=== PATIENT | female | born 1970 | race Caucasian/White ===

== ENCOUNTER 2016-11-11 00:55 | Observation (INO) | payer MEDICARE, OTHER ==
[2016-11-11] VITALS (9 sets, daily range): BP systolic 114–178; BP diastolic 57–87; PULSE 69–110; RESP 15–20; TEMP 97.8–98.4; O2SAT 94–97
[~2016-11-11] VITALS: Ht 172.7 cm; Wt 140.0 kg
[~2016-11-11 00:55] MED LIST: AMIT75TA6 PO; DEPA500T3 PO; ENAL5TAB PO; LEVEMIR; LORTA5 PO; NOVOLOGP2 SQ; PERI8.6T PO
[2016-11-11 01:40] LABS: AUTOMATED NEUTROPHIL # 6.3 TH/MM3 (1.8-7.7); BASOPHIL # 0.1 TH/MM3 (0-0.2); BASOPHIL % 0.7 % (0.0-2.0); EOSINOPHIL # 0.3 TH/MM3 (0-0.4); EOSINOPHIL % 2.8 % (0.0-4.0); HEMATOCRIT 44.9 % (35.0-46.0); HEMO FLAGS DIFF FINAL; LYMPH % 33.5 % (9.0-44.0); LYMPHOCYTE # 3.8 TH/MM3 (1.0-4.8); MEAN CELL VOLUME 90.3 FL (80.0-100.0); MEAN CORPUSCULAR HEMOGLOBIN 30.3 PG (27.0-34.0); MEAN CORPUSCULAR HGB CONC 33.6 % (32.0-36.0); MONO % 7.4 % (0.0-8.0); NEUT % 55.6 % (16.0-70.0); PLATELET COUNT 349 TH/MM3 (150-450); RED BLOOD COUNT 4.98 MIL/MM3 (4.00-5.30); RED CELL DISTRIBUTION WIDTH 13.2 % (11.6-17.2); WHITE BLOOD COUNT 11.2 TH/MM3 (4.0-11.0)
--- NOTE | 2016-11-11 01:54 | RADRPT ---
EXAM DATE/TIME: 11/11/2016 01:26 [facility] COMPARISON: No previous studies available for comparison. INDICATIONS : Chest pain. MEDICAL HISTORY : Diabetes mellitus type II. SURGICAL HISTORY : None. ENCOUNTER: Initial ACUITY: 1 day PAIN SCORE: 6/10 LOCATION: Bilateral chest FINDINGS: A single view of the chest demonstrates the lungs to be symmetrically aerated without evidence of mas s, infiltrate or effusion. The cardiomediastinal contours are unremarkable. Osseous structures are intact. CONCLUSION: No acute disease. John Patel MD on November 11, 2016 at 1:52 Board Certified Radiologist. This report was verified electronically.
[2016-11-11 02:15] LABS: ANION GAP 8 MEQ/L (5-15); BICARBONATE 25.4 MEQ/L (21.0-32.0); BLOOD UREA NITROGEN 10 MG/DL (7-18); CHLORIDE 108 MEQ/L (98-107); GLOMERULAR FILTRATION RATE 102 ML/MIN (>89); POTASSIUM 3.7 MEQ/L (3.5-5.1); SODIUM (NA) 141 MEQ/L (136-145)
[2016-11-11 02:16] LABS: CREATINE KINASE 74 U/L (26-192)
[2016-11-11] MEDS ORDERED: NITROGLYCERIN 0.4 MG SL 25 TABS/BTL SL ONE (03:00)
[2016-11-11] MEDS ORDERED: ASPIRIN 81 MG CHEW TAB CHEW ONE (03:00)
[2016-11-11] MEDS ORDERED: ONDANSETRON HCL 4 MG/2 ML VIAL IV PUSH ONE (03:00)
[2016-11-11] MEDS ORDERED: DEPA500T3 PO (03:14)
[2016-11-11] MEDS ORDERED: CANA300T PO (03:14)
[2016-11-11] MEDS ORDERED: DIVA250ER PO (03:14)
[2016-11-11] MEDS ORDERED: NOVOLOGP2 SQ (03:14)
[2016-11-11] MEDS ORDERED: DILT30TA PO (03:14)
[2016-11-11] MEDS ORDERED: MONT10TA2 PO (03:14)
[2016-11-11] MEDS ORDERED: PROM12.54 PO (03:14)
[2016-11-11] MEDS ORDERED: AMIT150T PO (03:14)
[2016-11-11] MEDS ORDERED: NEUR600T PO (03:14)
[2016-11-11] MEDS ORDERED: LEVEMIR SQ (03:14)
[2016-11-11 03:36] LABS: APTT (PATIENT) 24.7 SEC (24.3-30.1); INTERNATIONAL NORMALIZED RATIO 0.9 RATIO
--- NOTE | 2016-11-11 04:28 | PD ---
HPI Chief Complaint: Chest Pain Time Seen by Provider: 02:40 Travel History International Travel<30 days: No Contact w/Intl Traveler<30days: No Traveled to known affect area: No History of Present Illness HPI Patient is a 46-year-old female presents emergency department for evaluation of chest pain which woke her from a sound sleep tonight. Patient states is associated with some mild nausea and one episode of vomiting as well as some mild shortness of breath. Patient states the pain also radiates down her left leg and she thinks that she has some minimal swelling over left leg. Patient states she has a history of a procedure and a vein to her lower extremity which was years ago. Patient also states that she had a stress test over 10 years ago. Has her father who had her first heart attack at the age of 45, she does have a history of high blood pressure was not taking medicine for her. Nonsmoker, no cholesterol problems. States the pain is very squeezing left- sided chest. PFSH Past Medical History Autoimmune Disease: No Cancer: No Cardiovascular Problems: Yes (HTN) Diabetes: Yes Patient Takes Glucophage: No Diminished Hearing: No Endocrine: Yes Genitourinary: No Hypertension: Yes Immune Disorder: No Musculoskeletal: No Neurologic: Yes (BRAIN ANEURYSM) Psychiatric: No Reproductive: No Respiratory: Yes (ASTHMA) Migraines: Yes ?: Not Menopausal: No : 6 Para: 3 Past Surgical History Abdominal Surgery: Yes (gb) Cholecystectomy: Yes Tonsillectomy: Yes Other Surgery: Yes (vascular surgery blle ) Social History Alcohol Use: Yes (RARE) Tobacco Use: No Substance Use: Yes (WEED) Allergies-Medications (Allergen,Severity, Reaction): Coded Allergies: Amoxicillin (Verified Allergy, Severe, 11/11/16) Biaxin (Verified Allergy, Severe, 11/11/16) Codeine (Verified Allergy, Severe, 11/11/16) Erythromycin (Verified Allergy, Severe, 11/11/16) Latex (Verified Allergy, Severe, 11/11/16) Metformin (Verified Allergy, Severe, 11/11/16) Penicillin (Verified Allergy, Severe, 11/11/16) Percocet (Verified Allergy, Severe, 11/11/16) Tylox (Verified Allergy, Severe, 11/11/16) Gadolinium Derivatives (Verified Allergy, Intermediate, EDEMA, 11/11/16) Xanax (Verified Allergy, Mild, HIVES, 11/11/16) Reported Meds & Prescriptions Reported Meds & Active Scripts Active Reported Amitriptyline (Amitriptyline HCl) 150 Mg Tab 150 Mg PO HS Diltiazem (Diltiazem HCl) 30 Mg Tab 30 Mg PO DAILY Invokana (Canagliflozin) 300 Mg Tab 300 Mg PO DAILY Take before 1st meal of day. Promethazine (Promethazine HCl) 12.5 Mg Tab 12.5 Mg PO Q6H PRN Novolog Inj (Insulin Aspart) 1,000 Unit/10 Ml Vial 0 SQ TID Sliding Scale as directed. Levemir Inj (Insulin Detemir) 1,000 unit/ 10 ML Vial 55 Units SQ BID Do not mix with any other Insulin. Neurontin (Gabapentin) 600 Mg Tab 600 Mg PO TID Depakote ER (Divalproex Sodium) 250 Mg Geri 250 Mg PO HS Depakote ER (Divalproex Sodium) 500 Mg Geri 500 Mg PO DAILY NEB Singulair (Montelukast Sodium) 10 Mg Tab Unknown Dose PO DAILY Review of Systems Except as stated in HPI: all other systems reviewed are Neg Physical Exam Narrative GENERAL: Well-developed well-nourished, morbidly obese in no apparent distress. SKIN: Focused skin assessment warm/dry. HEAD: Atraumatic. Normocephalic. EYES: Pupils equal and round. No scleral icterus. No injection or drainage. ENT: No nasal bleeding or discharge. Mucous membranes pink and moist. NECK: Trachea midline. No JVD. CARDIOVASCULAR: Regular rate and rhythm. No murmur appreciated. 2+ but equal pulses in all 4 extremity's. RESPIRATORY: No accessory muscle use. Clear to auscultation. Breath sounds equal bilaterally. GASTROINTESTINAL: Abdomen soft, non-tender, nondistended. Hepatic and splenic margins not palpable. MUSCULOSKELETAL: No obvious deformities. No clubbing. No cyanosis. No edema. I appreciate no swelling of either lower extremity. Homans sign is negative. NEUROLOGICAL: Awake and alert. No obvious cranial nerve deficits. Motor grossly within normal limits. Normal speech. PSYCHIATRIC: Appropriate mood and affect; insight and judgment normal. Data Data Last Documented VS Vital Signs Date Time Temp Pulse Resp B/P Pulse Ox O2 Delivery O2 Flow Rate FiO2 11/11/16 03:05 110 20 143/68 97 Room Air 11/11/16 00:56 98.4 Orders Electrocardiogram (11/11/16 01:02) Complete Blood Count With Diff (11/11/16 01:02) Basic Metabolic Panel (Bmp) (11/11/16 01:02) Ckmb (Isoenzyme) Profile (11/11/16 01:02) Troponin I (11/11/16 01:02) Chest, Single Ap (11/11/16 01:02) Iv Access Insert/Monitor (11/11/16 01:02) Ecg Monitoring (11/11/16 01:02) Oxygen Administration (11/11/16 01:02) Oximetry (11/11/16 01:02) Act Partial Throm Time (Ptt) (11/11/16 02:33) Prothrombin Time / Inr (Pt) (11/11/16 02:33) D-Dimer (11/11/16 02:33) Ondansetron Inj (Zofran Inj) (11/11/16 03:00) Nitroglycerin Sl (Nitrostat Sl) (11/11/16 03:00) Aspirin Chew (Aspirin Chew) (11/11/16 03:00) Troponin I (11/11/16 04:12) Electrocardiogram (11/11/16 ) Labs Laboratory Tests Test 11/11/16 11/11/16 01:25 02:57 White Blood Count 11.2 TH/MM3 Red Blood Count 4.98 MIL/MM3 Hemoglobin 15.1 GM/DL Hematocrit 44.9 % Mean Corpuscular Volume 90.3 FL Mean Corpuscular Hemoglobin 30.3 PG Mean Corpuscular Hemoglobin 33.6 % Concent Red Cell Distribution Width 13.2 % Platelet Count 349 TH/MM3 Mean Platelet Volume 8.0 FL Neutrophils (%) (Auto) 55.6 % Lymphocytes (%) (Auto) 33.5 % Monocytes (%) (Auto) 7.4 % Eosinophils (%) (Auto) 2.8 % Basophils (%) (Auto) 0.7 % Neutrophils # (Auto) 6.3 TH/MM3 Lymphocytes # (Auto) 3.8 TH/MM3 Monocytes # (Auto) 0.8 TH/MM3 Eosinophils # (Auto) 0.3 TH/MM3 Basophils # (Auto) 0.1 TH/MM3 CBC Comment DIFF FINAL Differential Comment Sodium Level 141 MEQ/L Potassium Level 3.7 MEQ/L Chloride Level 108 MEQ/L Carbon Dioxide Level 25.4 MEQ/L Anion Gap 8 MEQ/L Blood Urea Nitrogen 10 MG/DL Creatinine 0.63 MG/DL Estimat Glomerular Filtration 102 ML/MIN Rate Random Glucose 98 MG/DL Calcium Level 8.4 MG/DL Total Creatine Kinase 74 U/L Troponin I LESS THAN 0.02 NG/ML Prothrombin Time 10.0 SEC Prothromb Time International 0.9 RATIO Ratio Activated Partial 24.7 SEC Thromboplast Time D-Dimer Quantitative (PE/DVT) 0.33 MG/L [place] [place] Medical Decision Making Medical Screen Exam Complete: Yes Emergency Medical Condition: Yes Interpretation(s) EKG shows normal sinus rhythm normal axis normal R-wave progression. No concerning ST segment changes. Possible left atrial enlargement. This is a borderline EKG. Differential Diagnosis Chest pain, ACS, AMI, PE seems unlikely, DVT seems unlikely. Narrative Course Patient was roomed emergency department, given nitroglycerin and aspirin, nitroglycerin relieved her pain minimally. Patient does have risk factors as above. Initial EKG and troponin negative, have added on a d-dimer which is negative. Discussed with the patient chest pain workup and recommended observation status and she is agreeable this time. Stable for the chest pain center. Diagnosis Primary Impression: Chest pain Qualified Code: R07.9 - Chest pain, unspecified type Admitting Information Admitting Physician Requests: Observation Condition: Stable Donnie Patterson MD Nov 11, 2016 04:28
[2016-11-11] MEDS ORDERED: NITROGLYCERIN 0.4 MG SL 25 TABS/BTL SL PRN (08:00)
[2016-11-11] MEDS ORDERED: GLUCAGON 1 MG/ML VIAL OTHER PRN (08:00)
[2016-11-11] MEDS ORDERED: DEXTROSE 50% IN WATER 50 ML VIAL(D50) IV PRN (08:00)
[2016-11-11] MEDS ORDERED: ONDANSETRON HCL 4 MG/2 ML VIAL IV PRN (08:00)
[2016-11-11 08:39] LABS: CREATINE KINASE 42 U/L (26-192)
[2016-11-11] MEDS ORDERED: ASPIRIN 325 MG TAB PO SCH (09:00)
[2016-11-11] MEDS ORDERED: SODIUM CHLORIDE 0.9% FLUSH 10 ML FLUSH IV FLUSH SCH (09:00)
--- NOTE | 2016-11-11 10:07 | HHI.HP ---
HPI Primary Care Physician David Lopez DO Chief Complaint Chest pain History of Present Illness 46-year-old patient with history of hypertension, diabetes type 2, and morbidly obese presents for evaluation of chest pain. Onset last evening at 11 PM. Pain woke her from sleep. Location left anterior chest. Characterized as shooting pain and squeezing. Duration constant, severe pain lasts approximately 1 hour currently pain level is 6/10. Associated symptoms included shortness of breath , nausea, vomiting, and lightheadedness. Denied any diaphoresis. Also states she has a current migraine. No known precipitating or relieving factors. Review of Systems General: No fatigue,weakness, fever, chills, recent illness, recent travel, or change in appetite HEENT: Current migraine. Endorses frequent migraine takes amitriptyline and Depakote. Reports 3 cerebral aneurysms that are all stable. Follows with Dr. Lazo. No vision changes, no nasal congestion or drainage, no dysphasia CV: As stated above. No palpitations or dizziness. RESP: No SOB, cough, wheeze, recent URI. Reports history of asthma. GI: No current nausea or vomiting. No bowel changes, diarrhea, constipation, pain, distention, melena, or blood in the stool. No unintentional weight gain or weight loss : No dysuria, urgency, frequency, or history of kidney stones or frequent UTI EXT: Bilateral lower leg neuropathy. Occasional dependent edema that is relieved with elevation. MS: As stated above. Pain is reproduced upon palpation. Same pain that brought her to the emergency room. No change in ROM NEURO: No difficulty with balance, LOC, motor/sensory deficits PSYCH: No anxiety, depression, suicidal ideation, or situational stress. Endorses she has a "social phobia does not like to go in public" SKIN: No rashes, no concerning lesions Past Family Social History Allergies: Coded Allergies: Amoxicillin (Verified Allergy, Severe, 11/11/16) Biaxin (Verified Allergy, Severe, 11/11/16) Codeine (Verified Allergy, Severe, 11/11/16) Erythromycin (Verified Allergy, Severe, 11/11/16) Latex (Verified Allergy, Severe, 11/11/16) Metformin (Verified Allergy, Severe, 11/11/16) Penicillin (Verified Allergy, Severe, 11/11/16) Percocet (Verified Allergy, Severe, 11/11/16) Tylox (Verified Allergy, Severe, 11/11/16) Gadolinium Derivatives (Verified Allergy, Intermediate, EDEMA, 11/11/16) Xanax (Verified Allergy, Mild, HIVES, 11/11/16) Past Medical History Hypertension, diabetes type 2 insulin-dependent, morbidly obese, cerebral aneurysms 3 (reports 1 right side, 2 left side) Past Surgical History Cholecystectomy, tonsillectomy Reported Medications Active Reported Amitriptyline (Amitriptyline HCl) 150 Mg Tab 150 Mg PO HS Diltiazem (Diltiazem HCl) 30 Mg Tab 30 Mg PO DAILY Invokana (Canagliflozin) 300 Mg Tab 300 Mg PO DAILY Take before 1st meal of day. Promethazine (Promethazine HCl) 12.5 Mg Tab 12.5 Mg PO Q6H PRN Novolog Inj (Insulin Aspart) 1,000 Unit/10 Ml Vial 0 SQ TID Sliding Scale as directed. Levemir Inj (Insulin Detemir) 1,000 unit/ 10 ML Vial 55 Units SQ BID Do not mix with any other Insulin. Neurontin (Gabapentin) 600 Mg Tab 600 Mg PO TID Depakote ER (Divalproex Sodium) 250 Mg Geri 250 Mg PO HS Depakote ER (Divalproex Sodium) 500 Mg Geri 500 Mg PO DAILY NEB Singulair (Montelukast Sodium) 10 Mg Tab Unknown Dose PO DAILY Active Ordered Medications Current Medications Medications (Trade) Dose Ordered Sig/Raulito Route Start Time Stop Time Status Last Admin (NS Flush) 2 ml BID IV FLUSH 11/11/16 09:00 11/11/16 09:01 (Zofran Inj) 4 mg Q6H PRN IV 11/11/16 08:00 (Nitrostat Sl) 0.4 mg Q5M PRN SL 11/11/16 08:00 (Aspirin) 325 mg DAILY PO 11/11/16 09:00 11/11/16 09:01 (D50w (Vial) Inj) 50 ml UNSCH PRN IV 11/11/16 08:00 (Glucagon Inj) 1 mg UNSCH PRN OTHER 11/11/16 08:00 (Neurontin) 600 mg TID PO 11/11/16 13:00 UNV Family History Father from heart attack at age 45 Social History Known hypertension or diabetes. No known hyperlipidemia. Lifelong nonsmoker. Denies any alcohol use. Endorses occasional marijuana last smoked 4 days ago. Endorses a sedentary lifestyle. Past cardiac testing 01/26/11 exercise stress test ambulated 6 minutes. Nonischemic findings. Physical Exam Vital Signs Vital Signs Date Time Temp Pulse Resp B/P Pulse Ox O2 Delivery O2 Flow Rate FiO2 11/11/16 07:47 97.8 69 17 153/72 97 11/11/16 06:20 73 16 114/57 97 Room Air 11/11/16 05:40 97 21 11/11/16 03:05 110 20 143/68 97 Room Air 11/11/16 00:56 98.4 108 16 178/87 95 Room Air Physical Exam GENERAL: Alert WN, WD, NAD, pleasant, morbidly obese, female HEAD: NC, AT EYES: Sclera clear, conjunctiva without injection, pupils equal and round ENT: Mucous membranes pink and moist, no nasal discharge or bleeding NECK: Supple, no masses, trachea midline CV: RRR, 1/6 systolic murmur. No rub or gallop. no JVD, S1-S2 no S3-S4. No carotid bruits. RESP: Clear lungs throughout bilateral, no crackles, wheeze, rhonchi, symmetrical chest rise, nonlabored, able to speak in full sentences ABD: Soft, NT, ND, no masses, positive bowel tones, obese BACK: No CVAT EXT: Pulses +24, +1 pitting edema left greater than right dependent edema MS: Normal tone 4 extremities, nontender, no obvious deformities, full range of motion NEURO: CN II through CN XII grossly intact, motor strength 5/5, gait WNL PSYCH: A+O 3, pleasant affect, appropriate speech, appropriate mood and affect , insight and judgment SKIN: Normal turgor, normal texture, no lesions, no rashes, even hair distribution Laboratory Laboratory Tests Test 11/11/16 11/11/16 11/11/16 11/11/16 01:25 02:57 04:35 07:45 White Blood Count 11.2 Red Blood Count 4.98 Hemoglobin 15.1 Hematocrit 44.9 Mean Corpuscular Volume 90.3 Mean Corpuscular Hemoglobin 30.3 Mean Corpuscular Hemoglobin 33.6 Concent Red Cell Distribution Width 13.2 Platelet Count 349 Mean Platelet Volume 8.0 Neutrophils (%) (Auto) 55.6 Lymphocytes (%) (Auto) 33.5 Monocytes (%) (Auto) 7.4 Eosinophils (%) (Auto) 2.8 Basophils (%) (Auto) 0.7 Neutrophils # (Auto) 6.3 Lymphocytes # (Auto) 3.8 Monocytes # (Auto) 0.8 Eosinophils # (Auto) 0.3 Basophils # (Auto) 0.1 CBC Comment DIFF FINAL Differential Comment Sodium Level 141 Potassium Level 3.7 Chloride Level 108 Carbon Dioxide Level 25.4 Anion Gap 8 Blood Urea Nitrogen 10 Creatinine 0.63 Estimat Glomerular Filtration 102 Rate Random Glucose 98 Calcium Level 8.4 Total Creatine Kinase 74 42 Troponin I LESS THAN 0.02 LESS THAN 0.02 LESS THAN 0.02 Prothrombin Time 10.0 Prothromb Time International 0.9 Ratio Activated Partial 24.7 Thromboplast Time D-Dimer Quantitative (PE/DVT) 0.33 Result Diagram: 11/11/16 0125 11/11/16 0125 Imaging Last Impressions Chest X-Ray 11/11/16 0102 Signed Impressions: Service Date/Time: November 01:26 - CONCLUSION: No acute disease. John Patel MD Myocardial Perfusion Scan Nuc Med 11/11/16 0000 Signed Impressions: Service Date/Time: November 10:33 - CONCLUSION: 1. Very subtle focal possible reversible perfusion defect in the anterolateral wall. 2. No focal wall motion abnormality with EF of 57%%. RISK CATEGORY: Low (<1%% Annual Mortality Rate) Gonzales Ji MD Course EKG Normal sinus rhythm, normal axis, no ST or T-segment changes Assessment and Plan Assessment and Plan #1 Atypical Chest pain-admitted to chest pain center. Monitored overnight. Ruled out with serial EKGs and cardiac enzymes. Seen and evaluated by Dr. Elliott Marc. Due to multiple risk factors will proceed with exercise stress test. Chest discomfort most likely musculoskeletal, noncardiac. Reassured patient. Patient agreeable to plan a care #2 Diabetes-SSI sliding-scale #3 Brain aneurysmfollow with neurologist #4 Neuropathycontinue gabapentin #5 Hypertensioncontinue Cardizem #6 Musculoskeletal painToradol 30 mg IV 1 dose, naproxen 500 mg twice a day 5 days prescription provided discharge Francesca Kilpatrick Nov 11, 2016 10:07
[2016-11-11] MEDS ORDERED: DILTIAZEM HCL 30 MG TAB PO SCH (10:15)
--- NOTE | 2016-11-11 10:20 | HHI.HP ---
HPI Primary Care Physician David Lopez, DO History of Present Illness Patient seen and examined along with HE[employer]. H&P as documented is appropriate. CP is atypical in duration, radiation and character. PE: Tender at upper L costo-condral junctions and upper ribs Heart: RR with 1/6 S murmur but no GR Abd; Massive obesity, stria Ext: 2+ pitting L, 1+ R A: CP atypical possible musc-skeletal RO cardiac DM poorly controlled Brain aneurisms x3 by history veinous disease lower ext by hx P: RO with std protocol and stress test if neg return to FU with PCP Past Family Social History Allergies: Coded Allergies: Amoxicillin (Verified Allergy, Severe, 11/11/16) Biaxin (Verified Allergy, Severe, 11/11/16) Codeine (Verified Allergy, Severe, 11/11/16) Erythromycin (Verified Allergy, Severe, 11/11/16) Latex (Verified Allergy, Severe, 11/11/16) Metformin (Verified Allergy, Severe, 11/11/16) Penicillin (Verified Allergy, Severe, 11/11/16) Percocet (Verified Allergy, Severe, 11/11/16) Tylox (Verified Allergy, Severe, 11/11/16) Gadolinium Derivatives (Verified Allergy, Intermediate, EDEMA, 11/11/16) Xanax (Verified Allergy, Mild, HIVES, 11/11/16) Reported Medications Reported Meds & Active Scripts Active Reported Amitriptyline (Amitriptyline HCl) 150 Mg Tab 150 Mg PO HS Diltiazem (Diltiazem HCl) 30 Mg Tab 30 Mg PO DAILY Invokana (Canagliflozin) 300 Mg Tab 300 Mg PO DAILY Take before 1st meal of day. Promethazine (Promethazine HCl) 12.5 Mg Tab 12.5 Mg PO Q6H PRN Novolog Inj (Insulin Aspart) 1,000 Unit/10 Ml Vial 0 SQ TID Sliding Scale as directed. Levemir Inj (Insulin Detemir) 1,000 unit/ 10 ML Vial 55 Units SQ BID Do not mix with any other Insulin. Neurontin (Gabapentin) 600 Mg Tab 600 Mg PO TID Depakote ER (Divalproex Sodium) 250 Mg Geri 250 Mg PO HS Depakote ER (Divalproex Sodium) 500 Mg Geri 500 Mg PO DAILY NEB Singulair (Montelukast Sodium) 10 Mg Tab Unknown Dose PO DAILY Active Ordered Medications Current Medications Medications (Trade) Dose Ordered Sig/Raulito Route Start Time Stop Time Status Last Admin (NS Flush) 2 ml BID IV FLUSH 11/11/16 09:00 11/11/16 09:01 (Zofran Inj) 4 mg Q6H PRN IV 11/11/16 08:00 (Nitrostat Sl) 0.4 mg Q5M PRN SL 11/11/16 08:00 (Aspirin) 325 mg DAILY PO 11/11/16 09:00 11/11/16 09:01 (D50w (Vial) Inj) 50 ml UNSCH PRN IV 11/11/16 08:00 (Glucagon Inj) 1 mg UNSCH PRN OTHER 11/11/16 08:00 (Neurontin) 600 mg TID PO 11/11/16 13:00 UNV (Cardizem) 30 mg DAILY PO 11/11/16 10:15 UNV Physical Exam Vital Signs Vital Signs Date Time Temp Pulse Resp B/P Pulse Ox O2 Delivery O2 Flow Rate FiO2 11/11/16 07:47 97.8 69 17 153/72 97 11/11/16 06:20 73 16 114/57 97 Room Air 11/11/16 05:40 97 21 11/11/16 03:05 110 20 143/68 97 Room Air 11/11/16 00:56 98.4 108 16 178/87 95 Room Air Laboratory Laboratory Tests Test 11/11/16 11/11/16 11/11/16 11/11/16 01:25 02:57 04:35 07:45 White Blood Count 11.2 Red Blood Count 4.98 Hemoglobin 15.1 Hematocrit 44.9 Mean Corpuscular Volume 90.3 Mean Corpuscular Hemoglobin 30.3 Mean Corpuscular Hemoglobin 33.6 Concent Red Cell Distribution Width 13.2 Platelet Count 349 Mean Platelet Volume 8.0 Neutrophils (%) (Auto) 55.6 Lymphocytes (%) (Auto) 33.5 Monocytes (%) (Auto) 7.4 Eosinophils (%) (Auto) 2.8 Basophils (%) (Auto) 0.7 Neutrophils # (Auto) 6.3 Lymphocytes # (Auto) 3.8 Monocytes # (Auto) 0.8 Eosinophils # (Auto) 0.3 Basophils # (Auto) 0.1 CBC Comment DIFF FINAL Differential Comment Sodium Level 141 Potassium Level 3.7 Chloride Level 108 Carbon Dioxide Level 25.4 Anion Gap 8 Blood Urea Nitrogen 10 Creatinine 0.63 Estimat Glomerular Filtration 102 Rate Random Glucose 98 Calcium Level 8.4 Total Creatine Kinase 74 42 Troponin I LESS THAN 0.02 LESS THAN 0.02 LESS THAN 0.02 Prothrombin Time 10.0 Prothromb Time International 0.9 Ratio Activated Partial 24.7 Thromboplast Time D-Dimer Quantitative (PE/DVT) 0.33 Result Diagram: 11/11/165 11/11/16 0125 Elliott Marc MD Nov 11, 2016 10:20
[2016-11-11] MEDS: INSULIN ASPART SUPPLEMENTAL SCALE SQ SCH ×2 (11:00→17:56)
[2016-11-11 11:07] LABS: CREATINE KINASE 44 U/L (26-192)
[2016-11-11] MEDS ORDERED: REGADENOSON INJ 0.4 MG/5 ML SYR ONE (12:01)
[2016-11-11] MEDS ORDERED: AMINOPHYLLINE INJ 250 MG/10 ML VIAL ONE (12:02)
[2016-11-11] MEDS: GABAPENTIN 300 MG CAP PO SCH ×2 (12:49→17:55)
[2016-11-11] MEDS ORDERED: ACETAMINOPHEN 500 MG CPLT PO ONE (13:00)
--- NOTE | 2016-11-11 13:07 | RADRPT ---
EXAM DATE/TIME: 11/11/2016 10:33 [facility] COMPARISON: No previous studies available for comparison. INDICATIONS : Left chest pain with vomiting, nausea and dyspnea radiating down left leg with mild swelling. Angina. DOSE: 35.0 mCi Tc99m Myoview at stress. 11.0 mCi Tc99m Myoview at rest. 0.4 mg Lexiscan STRESS SYMPTOMS: Dyspnea, headache, and nausea. MEDICATIONS: 1.) 100 mg Aminophylline IV EJECTION FRACTION: 57% MEDICAL HISTORY : Hypertension. Diabetes mellitus type 2. Asthma. SURGICAL HISTORY : Tonsillectomy. Cholecystectomy. ENCOUNTER: Initial ACUITY: 1 day PAIN SCALE: 6/10 LOCATION: Left chest TECHNIQUE: The patient underwent pharmacologic stress with infusion of prescribed dose. Continuous ECG tracing was monitored during stress. Gated SPECT imaging was performed after stress and conventional SPECT i maging was performed at rest. The examination was performed on a SPECT/CT scanner, both attenuation and non-corrected datasets were reviewed. FINDINGS: DISTRIBUTION: The maximum perfused segment at stress is in the septal wall. PERFUSION STUDY: Questionable very subtle focal reversible perfusion defect in the anterolateral wall. GATED STUDY: There is intact wall motion and thickening without hypokinetic or dyskinetic segments. CONCLUSION: 1. Very subtle focal possible reversible perfusion defect in the anterolateral wall. 2. No focal wall motion abnormality with EF of 57%. RISK CATEGORY: Low (<1% Annual Mortality Rate) Gonzales Ji MD on November 11, 2016 at 13:00 Board Certified Radiologist. This report was verified electronically.
--- NOTE | 2016-11-11 14:26 | HHI.DCPOC ---
Discharge Care Plan Diagnosis: (1) Atypical chest pain (2) Type 2 diabetes mellitus (3) Musculoskeletal chest pain Goals to Promote Your Health * To prevent worsening of your condition and complications * To maintain your health at the optimal level Directions to Meet Your Goals Take your medications as prescribed Follow your dietary instruction Follow activity as directed Keep your appointments as scheduled Take your immunizations and boosters as scheduled If your symptoms worsen call your PCP, if no PCP go to Urgent Care Center or Emergency Room Smoking is Dangerous to Your Health. Avoid second hand smoke Call the 24-hour hour crisis hotline for domestic abuse at Francesca KilpatrickP Nov 11, 2016 14:26
[2016-11-11] MEDS ORDERED: NAPR500T PO (14:30)
[2016-11-11] MEDS ORDERED: KETOROLAC TROMETHAMINE 30 MG/ML (IVP) VIAL IV PUSH ONE (15:00)
--- NOTE | 2016-11-12 13:21 | TR ---
Date Performed: 11/11/2016 Time Performed: 11:26:26 DOCTOR: Ryland Rodriguez DRUG LIST: CLINICAL HISTORY: REASON FOR TEST: CHEST PAIN REASON FOR ENDING: OBSERVATION: CONCLUSION: Lexiscan stress test was performed under standard four minute protocol. Radionuclid e was injected one minute prior to ending the test. No electrocardiographic abormalities were present to suggest ischemia. Nuclear imaging and interpretation are pending. COMMENTS:
--- NOTE | 2016-11-12 13:25 | EKG ---
Date Performed: 11/11/2016 Time Performed: 01:10:01 PTAGE: 46 years EKG: Sinus rhythm POSSIBLE LEFT ATRIAL ENLARGEMENT BORDERLINE ECG NO PREVIOUS TRACING DOCTOR: Ryland Rodriguez Interpretating Date/Time 11/12/2016 13:22:52
--- NOTE | 2016-11-12 13:43 | EKG ---
Date Performed: 11/11/2016 Time Performed: 08:19:28 PTAGE: 46 years EKG: Sinus rhythm NORMAL ECG Compared to prior tracing no significant change PREVIOUS TRACING : 11/11/2016 01.10 DOCTOR: Ryland Rodriguez Interpretating Date/Time 11/12/2016 13:40:18
== END 2016-11-11 20:45 | disposition home or self-care (01) ==
LOC: NEPE 00:55 → NEDA 04:26 → NEPHCDU 07:27
PROVIDERS: ADMIT Internal Medicine Cardiovascular Disease; ATTEND Internal Medicine Cardiovascular Disease
DX: R07.89 Other chest pain (principal); E11.9 Type 2 diabetes mellitus without complications; Z79.84 Long term (current) use of oral hypoglycemic drugs; G62.9 Polyneuropathy, unspecified; M79.1 Myalgia; E66.01 Morbid (severe) obesity due to excess calories
CPT/HCPCS: 71010; 78452; 80048; 82550; 82948; 84484; 85025; 85379; 85610; 85730; 93005; 93017; 96374; 99285; A9502; G0378; J0280; J1815; J1885; J2405; J2785

== ENCOUNTER → 2016-12-15 | Outpatient (CLI) | payer MEDICARE, OTHER ==
[~2016-12-15] MED LIST changes: +AMIT150T PO; -AMIT75TA6 PO; +CANA300T PO; +DILT30TA PO; +DIVA250ER PO; -ENAL5TAB PO; +IOHEXOL 350 MG/ML 10 ML VIAL (for RAD DIAG) IV ONE; -LEVEMIR; +LEVEMIR SQ; -LORTA5 PO; +MONT10TA2 PO; +NAPR500T PO; +NEUR600T PO; -PERI8.6T PO; +PROM12.54 PO
--- NOTE | 2016-12-15 10:44 | RADRPT ---
EXAM DATE/TIME: 12/15/2016 09:43 [place] COMPARISON: CTA BRAIN W 3D RECON, April 29, 2015, 14:00. INDICATIONS : History of cerebral aneurysm. IV CONTRAST: 65 cc Omnipaque 350 (iohexol) IV RADIATION DOSE: 60.84 CTDIvol (mGy) MEDICAL HISTORY : Aneurysm SURGICAL HISTORY : None. ENCOUNTER: Initial ACUITY: 1 day PAIN SCALE: 0/10 LOCATION: cranial TECHNIQUE: Volumetric scanning was performed using a multi-row detector CT scanner. The data was post processed with a variety of visualization algorithms including full volume maximum intensity projection, multi -planar sliding thin slab reformation, curved planar reformation, and surface rendering techniques. Using automated exposure control and adjustment of the mA and/or kV according to patient size, radiat ion dose was kept as low as reasonably achievable to obtain optimal diagnostic quality images. DICO M format image data is available electronically for review and comparison. FINDINGS: There is excellent visualization of the major intracranial arteries out to the second-order branch ve ssels. There are no findings indicating the presence of an aneurysm in either the anterior or posterior circ ulation. Vessel caliber is stable without significant stenosis. There is no significant luminal irregularity. There is no evidence of vascular displacement or vascular malformation. CONCLUSION: Stable CTA of the brain without evidence of aneurysm, vascular malformation or significant vasculopat hy. Ciaran Birch MD on December 15, 2016 at 10:37 Board Certified Radiologist. This report was verified electronically.
[2016-12-15 10:56] LABS: ALT (GPT) 30 U/L (10-53); ANION GAP 7 MEQ/L (5-15); AST (GOT) 19 U/L (15-37); BICARBONATE 26.7 MEQ/L (21.0-32.0); BLOOD UREA NITROGEN 15 MG/DL (7-18); CHLORIDE 104 MEQ/L (98-107); GLOMERULAR FILTRATION RATE 110 ML/MIN (>89); GLUCOSE,FASTING 57 MG/DL (74-99); SODIUM (NA) 138 MEQ/L (136-145)
[2016-12-15 10:57] LABS: ALKALINE PHOSPHATASE 89 U/L (45-117); TOTAL BILIRUBIN ADULT 0.4 MG/DL (0.2-1.0)
[2016-12-15 11:02] LABS: POTASSIUM 3.9 MEQ/L (3.5-5.1)
[2016-12-15 15:43] LABS: HEMOGLOBIN A1a 1.4 %; HEMOGLOBIN A1b 1.2 %; HEMOGLOBIN Ao 79.8 %; HEMOGLOBIN F 2.1 %; HEMOGLOBIN LA1C 1.7 %; HEMOGLOBIN P3 3.9 %
--- NOTE | 2016-12-15 22:02 | MG ---
cc: JOSEP NICHOLS M.D. Sex: F REQUESTING PHYSICIAN: Dr. Rae. IDENTIFICATION An EEG was obtained on this 46 year-old patient with history of possible seizures, history of aneurysm and migraines. DESCRIPTION: The patient is described as awake. Hyperventilation not done. The EEG shows 8-10 per second alpha rhythms posteriorly. There is low amplitude 15-25 cycles per second activity frontally. There is some intermixed theta activity and there are also higher amplitude alpha rhythms on the left in comparison to the right. There are some occasional sharp discharges left more than right, temporal head region. Photic stimulation showed some bilateral driving response. INTERPRETATION Abnormal EEG because of left more than right hemisphere, mild slowing, and some occasional sharp discharges left more than right. The findings suggest left more than right hemisphere structural abnormality and possible epileptiform features on the left. No ictal pattern. Josep Nichols MD [facility] /9:36 PM /9:56 PM
== END ==
LOC: HEEG 07:37
PROVIDERS: ATTEND Psychiatry & Neurology Neurology
DX: I67.1 Cerebral aneurysm, nonruptured (principal); G40.909 Epilepsy, unspecified, not intractable, without status epilepticus; E11.9 Type 2 diabetes mellitus without complications; Z13.9 Encounter for screening, unspecified
CPT/HCPCS: 36415; 70496; 80053; 82306; 83036; 95819; Q9967